=== PATIENT | male | born 1980 | race African-American/Black ===

== ENCOUNTER 2020-09-13 06:06 | Emergency (ER) | payer SELFPAY ==
--- NOTE | 2020-09-13 06:47 | ER ---
Nurse's Notes [facility] Name: Juan Gomez Age: 40 yrs Sex: Male : 1980 Arrival Date: 09/13/2020 Time: 06:09 Bed 6 Private MD: Diagnosis: Presentation: 09/13 06:29 Chief complaint: Patient states: he woke up about an hour ago with his heart racing bb into the 120s which lasted about 30 minutes now it is normal pt has not had these symptoms in the past, denies drinking energy drinks or caffeinated beverages, denies street drugs. Coronavirus screen: At this time, the client does not indicate any symptoms associated with coronavirus-19. Ebola Screen: No symptoms or risks identified at this time. Initial Sepsis Screen: Does the patient meet any 2 criteria? No. Patient's initial sepsis screen is negative. Does the patient have a suspected source of infection? No. Patient's initial sepsis screen is negative. Risk Assessment: Do you want to hurt yourself or someone else? Patient reports no desire to harm self or others. Onset of symptoms was September 13, 2020. 06:29 Method Of Arrival: Ambulatory bb 06:29 Acuity: DAVE 3 bb Triage Assessment: 06:32 General: Appears in no apparent distress. Behavior is calm, cooperative. Pain: Denies bb pain. Neuro: Level of Consciousness is awake, alert, obeys commands, Oriented to person, place, time, situation. Cardiovascular: Capillary refill < 3 seconds Patient's skin is warm and dry. Rhythm is sinus rhythm. Respiratory: Respiratory effort is even, unlabored, Respiratory pattern is regular. GI: No signs and/or symptoms were reported involving the gastrointestinal system. Derm: Skin is intact, Skin is dry, Skin is normal, Skin temperature is warm. Musculoskeletal: Circulation, motion, and sensation intact. Historical: - Allergies: 06:32 No Known Allergies; bb - Home Meds: 06:32 None [Active]; bb - PMHx: 06:32 None; bb - PSHx: 06:32 None; bb - Immunization history:: Adult Immunizations unknown. - Social history:: Smoking status: Patient denies any tobacco usage or history of. Patient/guardian denies using alcohol, street drugs. Screenin:42 Abuse screen: Denies threats or abuse. Denies injuries from another. Nutritional screening: No deficits noted. Tuberculosis screening: No symptoms or risk factors identified. Fall Risk None identified. Assessment: 06:40 Reassessment: Pt stated he has no insurance and asked about how much it would cost, wh answered we have no idea how much this er visit cost. Pt stated he felt fine and just wished to be allowed to get out of ER. Notified Charge Nurse Pt wanted to leave without being seen. Vital Signs: 06:29 BP 125 / 86; Pulse 75; Resp 16 S; Temp 98.7(O); Pulse Ox 98% on R/A; Weight 54.43 kg bb (R); Height 5 ft. 5 in. (165.10 cm) (R); Pain 0/10; 06:29 Body Mass Index 19.97 (54.43 kg, 165.10 cm) ED Course: 06:09 Patient arrived in ED. [facility] 06:20 Chester Hernandez MD is Attending Physician. [facility] 06:32 Triage completed. 06:32 Arm band placed on Patient placed in an exam room, on a stretcher, on pulse oximetry. EKG completed in triage. Results shown to MD. 06:40 Sabi Feng, RN is Primary Nurse. 06:42 Patient has correct armband on for positive identification. 06:42 No provider procedures requiring assistance completed. Patient did not have IV access wh during this emergency room visit. Administered Medications: No medications were administered Outcome: 06:44 Eloped from patient exam room, before seeing physician post triage evaluation and consult. Pt left without being seen because of financial reasons according to him he feels good and will just come back if need to 06:46 Condition: stable 06:46 Patient left the ED. Signatures: Lilian Parra RN RN Sabi Feng, RN RN Fay Mendez [facility] Chester Hernandez MD MD 7 Corrections: (The following items were deleted from the chart) 06:45 06:42 AMA Other Pt left without being seen by [facility] 06:45 06:42 Condition: stable [facility] 06:45 06:42 Instructed on discharge instructions, follow up and referral plans. [facility]
[2020-09-13 07:02] VITALS: BP 125/86; TEMP 98.7; O2SAT 98
--- NOTE | 2020-09-14 07:16 | EKG ---
Test Date: 2020-09-13 Test Time: 06:29:44 Adult Specialist: MEASUREMENT RESULTS: Intervals: Rate: 73 GA: 136 QRSD: 72 QT: 382 QTc: 420 [place]: P: 78 GA: 136 QRS: 76 T: 61 INTERPRETIVE STATEMENTS: Normal sinus rhythm with sinus arrhythmia Normal ECG Compared to ECG 01/24/1997 09:05:00 No significant changes Electronically Signed On 09-14-20 07:14:11 CDT by Jonas Gonzalez
== END 2020-09-13 06:46 | disposition left against medical advice (07) ==
LOC: ER 06:06
DX: Z53.21 Procedure and treatment not carried out due to patient leaving prior to being seen by health care provider (principal)
CPT/HCPCS: 93005; 99284

== ENCOUNTER 2020-10-29 20:52 | Emergency (ER) | payer OTHER, SELFPAY ==
--- OUTSIDE RECORDS SUMMARY | 2020-10-29 20:55 | XMS REPORT | Continuity of Care Document ---
:1980 [address] [facility] t Address [address] [place] [address] Care Team Providers Name Role Phone Ayla BROOKSP Attending Clinician Porosi, Scotty Main Attending Clinician Unavailable Provider, Urgent Care Attending Clinician Unavailable Problems This patient has no known problems. Allergies, Adverse Reactions, Alerts This patient has no known allergies or adverse reactions. Medications This patient has no known medications. Procedures This patient has no known procedures. Encounters Start End Encounter Admission Attending Care Care Encounter Source Date/Time Date/Time Type Type Clinicians Facility Department ID 2019-11-27 2019-11-27 Telephone Ayla [facility] [id number] 00:00:00 00:00:00 Charity Doherty [id number] [place] [id number] [facility] [phone] [place] [address] Office [address] One 2019-11-26 2019-11-26 [place] Ayla [facility] [id number] 00:00:00 00:00:[address] [id number] [place] [id number] Professio [phone] [place] [address] Building 2019-11-25 2019-11-25 [facility] Ayla [facility] [id number] 10:18:00 23:59:[address] [id number] [place] [id number] [place] [id number] [id number] 2019-11-25 2019-11-25 [employer] [facility], [facility] [id number] 10:16:40 10:31:40 Visit Lab Main [place] [id number] [place] [id number] Profess[place] [phone] [place] [address] Building 2019-11-22 2019-11-22 Urgent Provider, [facility] [id number] 15:02:02 15:22:02 Care [facility] [id number] Care [place] [id number] [place] [phone] [place] [address] Office [address] Results This patient has no known results.
--- NOTE | 2020-10-29 21:40 | EDPHYS ---
Physician Documentation [facility] Name: Juan Gomez Age: 40 yrs Sex: Male : 1980 Arrival Date: 10/29/2020 Time: 21:03 Bed 5 Private MD: ED Physician Chester Hernandez HPI: 10/29 21:33 This 40 yrs old Black Male presents to ER via Ambulatory with complaints of mh7 Palpitations. 21:37 The patient presents with a history of heart racing. Context: The symptoms occur mh7 without known cause. Onset: The symptoms/episode began/occurred last month, and became worse 5 day(s) ago. Duration: The patient or guardian reports multiple episodes, that are intermittent, the episodes last approximately 1 minute(s). Modifying factors: The symptoms are aggravated by nothing. The symptoms are alleviated by nothing. Associated signs and symptoms: Pertinent negatives: anxiety, chest pain, cough, fever, lightheadedness, nausea, SOB, syncope, near-syncope, unusual stressors, vertigo, vomiting. Severity of symptoms: At their worst the symptoms were mild 5 day(s) ago, in the emergency department the symptoms have improved markedly. Historical: - Allergies: 21:16 No Known Allergies; vg1 - Home Meds: 21:16 None [Active]; vg1 - PMHx: 21:16 None; vg1 - PSHx: 21:16 None; vg1 - Immunization history:: Adult Immunizations not up to date. - Social history:: Smoking status: Patient denies any tobacco usage or history of. ROS: 21:37 Constitutional: Negative for fever, chills, and weight loss, Eyes: Negative for injury, mh7 pain, redness, and discharge, ENT: Negative for injury, pain, and discharge, Neck: Negative for injury, pain, and swelling, Respiratory: Negative for shortness of breath, cough, wheezing, and pleuritic chest pain, Abdomen/GI: Negative for abdominal pain, nausea, vomiting, diarrhea, and constipation, Back: Negative for injury and pain, : Negative for injury, bleeding, discharge, and swelling, MS/Extremity: Negative for injury and deformity, Skin: Negative for injury, rash, and discoloration, Neuro: Negative for headache, weakness, numbness, tingling, and seizure, Psych: Negative for depression, anxiety, suicide ideation, homicidal ideation, and hallucinations, Allergy/Immunology: Negative for hives, rash, and allergies, Endocrine: Negative for neck swelling, polydipsia, polyuria, polyphagia, and marked weight changes, Hematologic/Lymphatic: Negative for swollen nodes, abnormal bleeding, and unusual bruising. Exam: 21:37 Constitutional: This is a well developed, well nourished patient who is awake, alert, mh7 and in no acute distress. Head/Face: Normocephalic, atraumatic. Neck: Trachea midline, no thyromegaly or masses palpated, and no cervical lymphadenopathy. Supple, full range of motion without nuchal rigidity, or vertebral point tenderness. No Meningismus. Chest/axilla: Normal chest wall appearance and motion. Nontender with no deformity. No lesions are appreciated. Cardiovascular: Regular rate and rhythm with a normal S1 and S2. No gallops, murmurs, or rubs. Normal PMI, no JVD. No pulse deficits. Respiratory: Lungs have equal breath sounds bilaterally, clear to auscultation and percussion. No rales, rhonchi or wheezes noted. No increased work of breathing, no retractions or nasal flaring. Abdomen/GI: Soft, non-tender, with normal bowel sounds. No distension or tympany. No guarding or rebound. No evidence of tenderness throughout. Back: No spinal tenderness. No costovertebral tenderness. Full range of motion. Skin: Warm, dry with normal turgor. Normal color with no rashes, no lesions, and no evidence of cellulitis. MS/ Extremity: Pulses equal, no cyanosis. Neurovascular intact. Full, normal range of motion. Neuro: Awake and alert, GCS 15, oriented to person, place, time, and situation. Cranial nerves II-XII grossly intact. Motor strength 5/5 in all extremities. Sensory grossly intact. Cerebellar exam normal. Normal gait. Psych: Awake, alert, with orientation to person, place and time. Behavior, mood, and affect are within normal limits. Vital Signs: 21:13 BP 115 / 68; Pulse 76; Resp 16; Temp 98.7; Pulse Ox 100% ; Weight 52.16 kg; Height 5 vg1 ft. 5 in. (165.10 cm); Pain 0/10; 21:13 Body Mass Index 19.14 (52.16 kg, 165.10 cm) vg1 MDM: 21:37 Differential diagnosis: arrythmia, dehydration, stress disorder. Refusal of service: [facility] The patient/guardian displays adequate decision making capability and despite a detailed discussion of alternatives, benefits, risks, and consequences refuses: all lab tests, all X-rays. 21:48 Patient medically screened. [facility] 10/29 21:20 Order name: Basic Metabolic Panel rr5 10/29 21:20 Order name: CBC with Diff rr5 Administered Medications: No medications were administered Disposition: 10/29/20 21:39 Patient has left against medical advice. - Patients states they are going to Home. - Condition is Stable. Signatures: Dispatcher [employer] EDCliff Cruz RN RN rr5 Laine Duckworth RN RN vg1 Chester Hernandez MD MD 7 Corrections: (The following items were deleted from the chart) 21:35 21:20 Labs collected and sent ordered. rr5 rr5 21:35 21:20 Oxygen Per Protocol ordered. rr5 rr5 21:35 21:20 O2 Sat Monitoring ordered. rr5 rr5 21:36 21:20 Cardiac monitoring ordered. rr5 rr5 21:36 21:20 EKG - Nurse/Tech ordered. rr5 rr5 21:36 21:20 IV Saline Lock ordered. rr5 rr5
--- NOTE | 2020-10-29 21:40 | ER ---
Nurse's Notes [facility] Name: Juan Gomez Age: 40 yrs Sex: Male : 1980 Arrival Date: 10/29/2020 Time: 21:03 Bed 5 Private MD: Diagnosis: Presentation: 10/29 21:13 Chief complaint: Patient states: 'Ana M been having palpitations, this is like the third vg1 one'; Pt denies Chest Pain. Coronavirus screen: Client denies travel out of the [place] in the last 14 days. Ebola Screen: Patient negative for fever greater than or equal to 101.5 degrees Fahrenheit, and additional compatible Ebola Virus Disease symptoms. Initial Sepsis Screen: Does the patient meet any 2 criteria? No. Patient's initial sepsis screen is negative. Does the patient have a suspected source of infection? No. Patient's initial sepsis screen is negative. Risk Assessment: Do you want to hurt yourself or someone else? Patient reports no desire to harm self or others. Onset of symptoms was October 29, 2020. 21:13 Method Of Arrival: Ambulatory 1 21:13 Acuity: DAVE 3 vg1 Triage Assessment: 21:16 General: Appears in no apparent distress. comfortable, Behavior is calm, cooperative. vg1 Pain: Denies pain. Historical: - Allergies: 21:16 No Known Allergies; vg1 - Home Meds: 21:16 None [Active]; vg1 - PMHx: 21:16 None; vg1 - PSHx: 21:16 None; vg1 - Immunization history:: Adult Immunizations not up to date. - Social history:: Smoking status: Patient denies any tobacco usage or history of. Assessment: 21:35 Reassessment: refused for treatment he stated about the financial aspect. ED provider rr5 aware. 21:40 Reassessment: laboratory and xray informed to cancel the order. rr5 Vital Signs: 21:13 BP 115 / 68; Pulse 76; Resp 16; Temp 98.7; Pulse Ox 100% ; Weight 52.16 kg; Height 5 vg1 ft. 5 in. (165.10 cm); Pain 0/10; 21:13 Body Mass Index 19.14 (52.16 kg, 165.10 cm) vg1 ED Course: 21:03 Patient arrived in ED. es 21:15 Triage completed. vg1 21:16 Chester Hernandez MD is Attending Physician. 7 21:16 Arm band placed on. vg1 21:18 Cliff Sims, RN is Primary Nurse. rr5 Administered Medications: No medications were administered Outcome: 21:36 AMA AMA form signed rr5 21:36 Condition: stable 21:36 Instructed on follow up and referral plans. 21:39 Patient left the ED. rr5 Signatures: Prabha Delgado Raymond, RN RN rr5 Laine Duckworth RN RN vg1 Chester Hernandez MD MD 7
== END 2020-10-29 21:39 | disposition left against medical advice (07) ==
LOC: ER 20:52
DX: R00.2 Palpitations (principal)
CPT/HCPCS: 99281